=== PATIENT | male | born 1945 | race Caucasian/White ===

== ENCOUNTER → 2018-10-12 | Outpatient (CLI) | payer MEDICARE | END | disposition home or self-care (01) | LOC: RAH 16:30 | PROVIDERS: ATTEND Internal Medicine | DX: M47.812 Spondylosis without myelopathy or radiculopathy, cervical region (principal); M50.31 Other cervical disc degeneration, high cervical region; M47.816 Spondylosis without myelopathy or radiculopathy, lumbar region; M25.78 Osteophyte, vertebrae; M79.642 Pain in left hand; M79.641 Pain in right hand | CPT/HCPCS: 72040; 72100; 73130 ==

== ENCOUNTER → 2021-10-22 | Outpatient (CLI) | payer MEDICARE ==
[2021-10-22 13:42] LABS: INR 1.17 (0.85-1.15); PROTHROMBIN TIME 12.6 SEC (9.6-11.6)
[2021-10-22 13:43] LABS: PARTIAL THROMBOPLASTIN TIME 33.6 SEC (26.3-35.5)
[2021-10-22 13:46] LABS: ALBUMIN 3.5 g/dL (3.5-5.0); CREATININE 1.1 mg/dL (0.5-1.5); TOTAL PROTEIN, SERUM 7.4 g/dL (6.0-8.3)
[2021-10-23 15:55] LABS: BASOPHILS % (AUTO) 0.4 % (0.0-5.0); EOSINOPHILS % (AUTO) 1.2 % (0.0-8.0); LYMPHOCYTES % (AUTO) 14.2 % (21.0-51.0); MEAN CORPUSCULAR HEMOGLOBIN 23.5 pg (27.0-33.0); MEAN CORPUSCULAR VOLUME 83.9 fL (79-99); MONOCYTES % (AUTO) 6.9 % (3.0-13.0); NEUTROPHILS % (AUTO) 76.9 % (40.0-77.0); PLATELET COUNT (AUTO) 185 K/uL (130-400); RED BLOOD CELL COUNT(AUTO) 4.77 MIL/uL (4.50-6.20); RED CELL DISTRIBUTION WIDTH 20.6 % (11.0-15.5); WHITE BLOOD COUNT (AUTO) 7.7 K/uL (4.8-10.8)
== END | disposition home or self-care (01) ==
LOC: RAH 12:41
PROVIDERS: ATTEND Internal Medicine Cardiovascular Disease
DX: R91.8 Other nonspecific abnormal finding of lung field (principal); I50.32 Chronic diastolic (congestive) heart failure; I27.20 Pulmonary hypertension, unspecified; E55.9 Vitamin D deficiency, unspecified; R94.31 Abnormal electrocardiogram [ECG] [EKG]; R09.02 Hypoxemia; Z79.899 Other long term (current) drug therapy
CPT/HCPCS: 36415; 71046; 80053; 80061; 82306; 83735; 83880; 85025; 85610; 85730

== ENCOUNTER 2021-12-03 12:43 | Inpatient (IN) | payer MEDICARE ==
[~2021-12-03] VITALS: Ht 167.6 cm; Wt 128.2 kg
[2021-12-03 13:38] LABS: HEMATOCRIT 37.6 % (42-54); MEAN CORPUSCULAR HEMOGLOBIN 24.2 pg (27.0-33.0); MEAN CORPUSCULAR HGB CONC 30.1 g/dL (32.0-36.0); MEAN CORPUSCULAR VOLUME 80.5 fL (79-99); PLATELET COUNT (AUTO) 162 K/uL (130-400); RED BLOOD CELL COUNT(AUTO) 4.67 MIL/uL (4.50-6.20); RED CELL DISTRIBUTION WIDTH 19.5 % (11.0-15.5); WHITE BLOOD COUNT (AUTO) 7.5 K/uL (4.8-10.8)
[2021-12-03 13:48] LABS: INR 1.21 (0.85-1.15); MAGNESIUM 2.1 mg/dL (1.80-2.40); POTASSIUM 4.2 mmol/L (3.5-5.1)
[2021-12-03 13:49] LABS: PARTIAL THROMBOPLASTIN TIME 33.4 SEC (26.3-35.5)
[2021-12-03] MEDS ORDERED: FUROSEMIDE 40MG VIAL IVP ONE (14:00)
[2021-12-03] MEDS ORDERED: LIDOCAINE HCL-MPF 1% 2ML VIAL IJ PRN (14:00)
[2021-12-03] MEDS ORDERED: POTASSIUM CHLORIDE 20MEQ/100ML 100 ML IV PRN (14:00)
[2021-12-03] MEDS ORDERED: KCL 20 MEQ ERTAB PO PRN (14:00)
[2021-12-03] MEDS ORDERED: POTASSIUM CHLORIDE 10% ELIXIR 20 MEQ/15 ML UDCUP PO PRN (14:00)
[2021-12-03] MEDS ORDERED: DEXTROSE 50%-WATER 50 ML DISP.SYRIN IV PRN (14:00)
[2021-12-03] MEDS ORDERED: PANTOPRAZOLE 40 MG TAB DR PO SCH (14:00)
[2021-12-03] MEDS ORDERED: IPRATROPIUM/ALBUTEROL SULFATE 3 ML SOLUTION IH PRN (14:00)
[2021-12-03 14:03] LABS: B-TYPE NATRIURETIC PEPTIDE 92 pg/mL (0-100)
[2021-12-03 15:16] LABS: ALBUMIN 3.4 g/dL (3.5-5.0); BILIRUBIN,DIRECT 0.3 mg/dL (0.0-0.3); BILIRUBIN,TOTAL 1.1 mg/dL (0.2-1.0); TOTAL PROTEIN, SERUM 7.5 g/dL (6.0-8.3)
[2021-12-03] MEDS: INSULIN R PO SSI SQ SCH ×2 (16:30→21:00)
[2021-12-03] MEDS ORDERED: DILT-36 PO (18:07)
[2021-12-03] MEDS ORDERED: ALLO300T2 PO (18:07)
[2021-12-03] MEDS ORDERED: VITAD50000 PO (18:07)
[2021-12-03] MEDS ORDERED: OMEP20CA12 PO (18:07)
[2021-12-03] MEDS ORDERED: POTA-79 PO (18:07)
[2021-12-03] MEDS ORDERED: APIX5TAB PO (18:07)
[2021-12-03] MEDS ORDERED: FURO40TA5 PO (18:07)
[2021-12-03] MEDS ORDERED: ALBU8.5H8 IH (18:11)
[2021-12-03] MEDS ORDERED: TIOT18CA3 IH (18:11)
[2021-12-03] MEDS ORDERED: HEPARIN 5,000 UNIT VIAL SQ SCH (20:00)
[2021-12-03 21:49] LABS: INR 1.18 (0.85-1.15); PROTHROMBIN TIME 12.7 SEC (9.6-11.6)
[2021-12-03 21:50] LABS: PARTIAL THROMBOPLASTIN TIME 31.6 SEC (26.3-35.5)
[2021-12-03] MEDS: HEPARIN 25,000 UNITS/250ML D5W 250 ML IV SCH (22:03)
[2021-12-03 22:40] VITALS: BP 142/60
[2021-12-03] MEDS ORDERED: HYDR-4060 PO (23:21)
[2021-12-04 04:00] VITALS: BP 155/79
[2021-12-04 04:34] LABS: INR 1.2 (0.85-1.15); PROTHROMBIN TIME 12.9 SEC (9.6-11.6)
[2021-12-04 04:53] LABS: PARTIAL THROMBOPLASTIN TIME 99.5 SEC (26.3-35.5)
[2021-12-04] MEDS: INSULIN R PO SSI SQ SCH ×3 (06:37→21:00)
[2021-12-04 07:17] LABS: BASOPHILS % (AUTO) 0.4 % (0.0-5.0); HEMATOCRIT 36.7 % (42-54); LYMPHOCYTES % (AUTO) 22.2 % (21.0-51.0); MEAN CORPUSCULAR HEMOGLOBIN 23.5 pg (27.0-33.0); MEAN CORPUSCULAR HGB CONC 29.2 g/dL (32.0-36.0); MEAN CORPUSCULAR VOLUME 80.7 fL (79-99); MONOCYTES % (AUTO) 8.7 % (3.0-13.0); NEUTROPHILS % (AUTO) 66.2 % (40.0-77.0); PLATELET COUNT (AUTO) 168 K/uL (130-400); RED BLOOD CELL COUNT(AUTO) 4.55 MIL/uL (4.50-6.20); RED CELL DISTRIBUTION WIDTH 19.6 % (11.0-15.5); WHITE BLOOD COUNT (AUTO) 8.4 K/uL (4.8-10.8)
[2021-12-04 07:29] LABS: ALBUMIN 3.3 g/dL (3.5-5.0); BILIRUBIN,TOTAL 1.1 mg/dL (0.2-1.0); CREATININE 1.1 mg/dL (0.5-1.5); MAGNESIUM 2.1 mg/dL (1.80-2.40); POTASSIUM 3.5 mmol/L (3.5-5.1); TOTAL PROTEIN, SERUM 7.1 g/dL (6.0-8.3)
[2021-12-04 07:49] VITALS: BP 117/52
[2021-12-04] MEDS ORDERED: KCL 20 MEQ ERTAB PO SCH (08:30)
[2021-12-04] MEDS: SPIRIVA IH SCH (09:00)
[2021-12-04] MEDS: PANTOPRAZOLE 40 MG TAB DR PO SCH (10:35)
[2021-12-04] MEDS: ALLOPURINOL 300 MG TABLET PO SCH (10:35)
[2021-12-04] MEDS: DILTIAZEM 120MG SR CAP PO SCH (10:36)
[2021-12-04 10:56] LABS: INR 1.17 (0.85-1.15); PROTHROMBIN TIME 12.6 SEC (9.6-11.6)
[2021-12-04 10:57] LABS: PARTIAL THROMBOPLASTIN TIME 77.7 SEC (26.3-35.5)
[2021-12-04 11:17] VITALS: BP 155/73
[2021-12-04] MEDS: HEPARIN 25,000 UNITS/250ML D5W 250 ML IV SCH (12:22)
[2021-12-04 16:08] VITALS: BP 144/70
[2021-12-04 16:22] LABS: INR 1.15 (0.85-1.15); PROTHROMBIN TIME 12.4 SEC (9.6-11.6)
[2021-12-04 16:23] LABS: PARTIAL THROMBOPLASTIN TIME 79.2 SEC (26.3-35.5)
[2021-12-04 20:00] VITALS: BP 136/71
[2021-12-04 23:28] LABS: INR 1.15 (0.85-1.15); PROTHROMBIN TIME 12.4 SEC (9.6-11.6)
[2021-12-04 23:30] LABS: PARTIAL THROMBOPLASTIN TIME 58.9 SEC (26.3-35.5)
[2021-12-05] VITALS (13 sets, daily range): BP systolic 101–160; BP diastolic 51–96
[2021-12-05 05:20] LABS: HEMATOCRIT 35.1 % (42-54); MEAN CORPUSCULAR HEMOGLOBIN 24.4 pg (27.0-33.0); MEAN CORPUSCULAR HGB CONC 29.9 g/dL (32.0-36.0); MEAN CORPUSCULAR VOLUME 81.4 fL (79-99); RED BLOOD CELL COUNT(AUTO) 4.31 MIL/uL (4.50-6.20); RED CELL DISTRIBUTION WIDTH 19.3 % (11.0-15.5); WHITE BLOOD COUNT (AUTO) 6.8 K/uL (4.8-10.8)
[2021-12-05 05:31] LABS: INR 1.13 (0.85-1.15); PROTHROMBIN TIME 12.2 SEC (9.6-11.6)
[2021-12-05 05:33] LABS: PARTIAL THROMBOPLASTIN TIME 41.3 SEC (26.3-35.5)
[2021-12-05 05:40] LABS: CREATININE 0.9 mg/dL (0.5-1.5); POTASSIUM 3.8 mmol/L (3.5-5.1)
[2021-12-05] MEDS: INSULIN R PO SSI SQ SCH ×2 (07:04→20:37)
[2021-12-05] MEDS ORDERED: SODIUM BICARB 50MEQ 50ML VIAL 50 ML ONE (07:08)
[2021-12-05] MEDS ORDERED: HEPARIN 10,000 UNIT/10ML (1,000 UNIT/ML) VIAL ONE (07:08)
[2021-12-05] MEDS ORDERED: IOHEXOL 350 MG/ML 100ML INFUS..BTL IV ONE (07:08)
[2021-12-05] MEDS ORDERED: IOHEXOL-350 50ML VIAL IV ONE (07:08)
[2021-12-05] MEDS ORDERED: NITROGLYCERIN 50MG VIAL ONE (07:08)
[2021-12-05] MEDS ORDERED: FENTANYL CITRATE PF 50 MCG/1 ML 2ML VIAL ONE ×2 (07:09→08:11)
[2021-12-05] MEDS ORDERED: LIDOCAINE HCL 400MG/20ML VIAL ONE (07:09)
[2021-12-05] MEDS ORDERED: MIDAZOLAM HCL 1 MG/ML 2ML VIAL ONE (07:09)
[2021-12-05] MEDS ORDERED: FUROSEMIDE 20MG VIAL ONE (08:37)
[2021-12-05] MEDS: SPIRIVA IH SCH (09:00)
[2021-12-05] MEDS ORDERED: LABETALOL 20MG VIAL IV ONE (09:01)
[2021-12-05] MEDS: ACETAMINOPHEN 500 MG TABLET PO PRN (09:47)
[2021-12-05] MEDS: PANTOPRAZOLE 40 MG TAB DR PO SCH (09:47)
[2021-12-05] MEDS: DILTIAZEM 120MG SR CAP PO SCH (09:48)
[2021-12-05] MEDS: ALLOPURINOL 300 MG TABLET PO SCH (09:48)
[2021-12-05] MEDS ORDERED: TRAMADOL HCL 50 MG TABLET ONE (10:27)
[2021-12-05] MEDS ORDERED: TRAMADOL HCL 50 MG TABLET PO SCH (10:30)
[2021-12-05] MEDS ORDERED: FENTANYL CITRATE PF 50 MCG/1 ML 2ML VIAL IVP SCH (12:30)
[2021-12-05] MEDS ORDERED: TRAMADOL HCL 50 MG TABLET PO PRN (18:30)
[2021-12-06] VITALS (13 sets, daily range): BP systolic 122–160; BP diastolic 63–86
[2021-12-06 04:14] LABS: HEMATOCRIT 35.2 % (42-54); MEAN CORPUSCULAR HEMOGLOBIN 24.9 pg (27.0-33.0); MEAN CORPUSCULAR HGB CONC 30.4 g/dL (32.0-36.0); MEAN CORPUSCULAR VOLUME 82.1 fL (79-99); RED BLOOD CELL COUNT(AUTO) 4.29 MIL/uL (4.50-6.20); RED CELL DISTRIBUTION WIDTH 19.5 % (11.0-15.5); WHITE BLOOD COUNT (AUTO) 9.2 K/uL (4.8-10.8)
[2021-12-06 04:30] LABS: CREATININE 0.9 mg/dL (0.5-1.5); POTASSIUM 4.1 mmol/L (3.5-5.1)
[2021-12-06] MEDS: INSULIN R PO SSI SQ SCH ×4 (06:31→21:00)
[2021-12-06 06:41] LABS: INR 1.17 (0.85-1.15); PROTHROMBIN TIME 12.6 SEC (9.6-11.6)
[2021-12-06 06:42] LABS: PARTIAL THROMBOPLASTIN TIME 30.2 SEC (26.3-35.5)
[2021-12-06] MEDS: DILTIAZEM 120MG SR CAP PO SCH (09:00)
[2021-12-06] MEDS: PANTOPRAZOLE 40 MG TAB DR PO SCH (09:00)
[2021-12-06] MEDS: ALLOPURINOL 300 MG TABLET PO SCH (09:00)
[2021-12-06] MEDS: SPIRIVA IH SCH (09:00)
[2021-12-06] MEDS ORDERED: CLOPIDOGREL 300MG TAB PO SCH (15:00)
[2021-12-06] MEDS ORDERED: ASPIRIN 325MG TAB PO SCH (15:00)
[2021-12-06] MEDS ORDERED: ASPIRIN 325MG TAB ONE (15:02)
[2021-12-06] MEDS ORDERED: CLOPIDOGREL 300MG TAB ONE (15:06)
[2021-12-06] MEDS ORDERED: SODIUM BICARB 50MEQ 50ML VIAL 50 ML ONE (16:05)
[2021-12-06] MEDS ORDERED: IOHEXOL 350 MG/ML 100ML INFUS..BTL IV ONE (16:06)
[2021-12-06] MEDS ORDERED: LIDOCAINE HCL 400MG/20ML VIAL ONE (16:06)
[2021-12-06] MEDS ORDERED: IOHEXOL-350 50ML VIAL IV ONE (16:06)
[2021-12-06] MEDS ORDERED: FENTANYL CITRATE PF 50 MCG/1 ML 2ML VIAL ONE ×2 (16:06→17:32)
[2021-12-06] MEDS ORDERED: MIDAZOLAM HCL 1 MG/ML 2ML VIAL ONE (16:06)
[2021-12-06] MEDS ORDERED: BIVALIRUDIN 250 MG/VIAL IV ONE ×2 (16:07→16:43)
[2021-12-06] MEDS ORDERED: NITROGLYCERIN 50MG VIAL ONE (16:51)
[2021-12-06] MEDS ORDERED: HEPARIN 10,000 UNIT/10ML (1,000 UNIT/ML) VIAL ONE (17:09)
[2021-12-06] MEDS ORDERED: FUROSEMIDE 20MG VIAL ONE (17:44)
[2021-12-06] MEDS: ACETAMINOPHEN 500 MG TABLET PO PRN (20:14)
[2021-12-07 04:33] LABS: HEMATOCRIT 35.6 % (42-54); MEAN CORPUSCULAR HEMOGLOBIN 24.5 pg (27.0-33.0); MEAN CORPUSCULAR HGB CONC 30.1 g/dL (32.0-36.0); MEAN CORPUSCULAR VOLUME 81.7 fL (79-99); RED BLOOD CELL COUNT(AUTO) 4.36 MIL/uL (4.50-6.20); RED CELL DISTRIBUTION WIDTH 19.3 % (11.0-15.5); WHITE BLOOD COUNT (AUTO) 6.4 K/uL (4.8-10.8)
[2021-12-07 04:37] VITALS: BP 136/69
[2021-12-07 04:48] LABS: CREATININE 0.8 mg/dL (0.5-1.5); POTASSIUM 3.8 mmol/L (3.5-5.1)
[2021-12-07 07:00] VITALS: BP 135/69
[2021-12-07] MEDS: INSULIN R PO SSI SQ SCH ×4 (07:04→21:00)
[2021-12-07] MEDS ORDERED: FUROSEMIDE 40MG VIAL IV ONE ×2 (08:30→15:00)
[2021-12-07] MEDS ORDERED: KCL 20 MEQ ERTAB PO ONE ×2 (08:30→15:00)
[2021-12-07] MEDS: ASPIRIN 81MG CHEW TAB PO SCH (08:39)
[2021-12-07] MEDS: PANTOPRAZOLE 40 MG TAB DR PO SCH (08:40)
[2021-12-07] MEDS: CLOPIDOGREL 75MG TAB PO SCH (08:40)
[2021-12-07] MEDS: ALLOPURINOL 300 MG TABLET PO SCH (08:40)
[2021-12-07] MEDS: DILTIAZEM 120MG SR CAP PO SCH (08:41)
[2021-12-07] MEDS: SPIRIVA IH SCH (09:00)
[2021-12-07 11:00] VITALS: BP 134/73
[2021-12-07 16:09] VITALS: BP 127/74
[2021-12-07 20:00] VITALS: BP 138/74
[2021-12-08 00:17] VITALS: BP 139/74
[2021-12-08 03:42] VITALS: BP 141/67
[2021-12-08 04:16] LABS: CREATININE 0.9 mg/dL (0.5-1.5); POTASSIUM 3.7 mmol/L (3.5-5.1)
[2021-12-08] MEDS: INSULIN R PO SSI SQ SCH (05:58)
[2021-12-08 07:15] VITALS: BP 141/73
[2021-12-08] MEDS: SPIRIVA IH SCH (09:00)
[2021-12-08] MEDS: DILTIAZEM 120MG SR CAP PO SCH (09:32)
[2021-12-08] MEDS: CLOPIDOGREL 75MG TAB PO SCH (09:32)
[2021-12-08] MEDS: ALLOPURINOL 300 MG TABLET PO SCH (09:33)
[2021-12-08] MEDS: ASPIRIN 81MG CHEW TAB PO SCH (09:33)
[2021-12-08] MEDS: PANTOPRAZOLE 40 MG TAB DR PO SCH (09:33)
[2021-12-08 11:30] VITALS: BP 145/76
[2021-12-08] MEDS ORDERED: TORS20TA4 PO (11:40)
[2021-12-08] MEDS ORDERED: CLOP75TA14 PO (11:40)
[2021-12-08] MEDS ORDERED: AEC81 PO (11:40)
[2021-12-08] MEDS ORDERED: APIXABAN 5 MG TABLET PO SCH (21:00)
== END 2021-12-08 14:45 | disposition home or self-care (01) | DRG 246 ==
LOC: EDH 12:43 → EDHIP 12:44 → 4CH 21:47
PROVIDERS: ADMIT Internal Medicine; ATTEND Internal Medicine
PROC: 5A09357 Assistance with Respiratory Ventilation, Less than 24 Consecutive Hours, Continuous Positive Airway Pressure (ICD-10-PCS; 2021-12-04)
PROC: B2111ZZ Fluoroscopy of Multiple Coronary Arteries using Low Osmolar Contrast (ICD-10-PCS; 2021-12-05)
PROC: B2151ZZ Fluoroscopy of Left Heart using Low Osmolar Contrast (ICD-10-PCS; 2021-12-05)
PROC: 5A09357 Assistance with Respiratory Ventilation, Less than 24 Consecutive Hours, Continuous Positive Airway Pressure (ICD-10-PCS; 2021-12-05)
PROC: 027034Z Dilation of Coronary Artery, One Artery with Drug-eluting Intraluminal Device, Percutaneous Approach (ICD-10-PCS; principal; 2021-12-06)
PROC: 4A023N8 Measurement of Cardiac Sampling and Pressure, Bilateral, Percutaneous Approach (ICD-10-PCS; 2021-12-06)
PROC: B2111ZZ Fluoroscopy of Multiple Coronary Arteries using Low Osmolar Contrast (ICD-10-PCS; 2021-12-06)
PROC: 4A023N7 Measurement of Cardiac Sampling and Pressure, Left Heart, Percutaneous Approach (ICD-10-PCS; 2021-12-06)
PROC: 5A09357 Assistance with Respiratory Ventilation, Less than 24 Consecutive Hours, Continuous Positive Airway Pressure (ICD-10-PCS; 2021-12-06)
PROC: 5A09357 Assistance with Respiratory Ventilation, Less than 24 Consecutive Hours, Continuous Positive Airway Pressure (ICD-10-PCS; 2021-12-07)
DX: I25.10 Atherosclerotic heart disease of native coronary artery without angina pectoris (principal); J96.01 Acute respiratory failure with hypoxia; I50.33 Acute on chronic diastolic (congestive) heart failure; Q21.1 Atrial septal defect; Z68.42 Body mass index [BMI] 45.0-49.9, adult; I11.0 Hypertensive heart disease with heart failure; I27.20 Pulmonary hypertension, unspecified; I48.91 Unspecified atrial fibrillation; M1A.9XX0 Chronic gout, unspecified, without tophus (tophi); G47.33 Obstructive sleep apnea (adult) (pediatric); E66.9 Obesity, unspecified; E78.5 Hyperlipidemia, unspecified; Z20.822 Contact with and (suspected) exposure to COVID-19; J43.9 Emphysema, unspecified; N40.0 Benign prostatic hyperplasia without lower urinary tract symptoms; Z96.641 Presence of right artificial hip joint; Z96.653 Presence of artificial knee joint, bilateral; I25.2 Old myocardial infarction; Z79.01 Long term (current) use of anticoagulants; Z88.8 Allergy status to other drugs, medicaments and biological substances; Z87.891 Personal history of nicotine dependence; Z95.0 Presence of cardiac pacemaker; Z95.5 Presence of coronary angioplasty implant and graft; Z86.73 Personal history of transient ischemic attack (TIA), and cerebral infarction without residual deficits
CPT/HCPCS: 36415; 71045; 80048; 80053; 80061; 80076; 82550; 82948; 83735; 83874; 83880; 84145; 84484; 85025; 85027; 85378; 85610; 85651; 85730; 86140; 87635; 87804; 93005; 93306; 93356; 93452; 93460; 93970; 99156; 99157; A4344; C1760; C1769; C1887; C1894; C9600; G0378; J0583; J1644; J1940; J2250; J3010; J3490; Q9967

== ENCOUNTER 2021-12-21 05:57 | Day surgery (SDC) | payer MEDICARE ==
[2021-12-19 09:03] LABS: BASOPHILS % (AUTO) 0.5 % (0.0-5.0); EOSINOPHILS % (AUTO) 2.8 % (0.0-8.0); HEMATOCRIT 42.1 % (42-54); LYMPHOCYTES % (AUTO) 22.8 % (21.0-51.0); MEAN CORPUSCULAR HEMOGLOBIN 24.3 pg (27.0-33.0); MEAN CORPUSCULAR HGB CONC 29.7 g/dL (32.0-36.0); MEAN CORPUSCULAR VOLUME 81.7 fL (79-99); MONOCYTES % (AUTO) 8.5 % (3.0-13.0); NEUTROPHILS % (AUTO) 64.9 % (40.0-77.0); PLATELET COUNT (AUTO) 217 K/uL (130-400); RED BLOOD CELL COUNT(AUTO) 5.15 MIL/uL (4.50-6.20); RED CELL DISTRIBUTION WIDTH 18.7 % (11.0-15.5); WHITE BLOOD COUNT (AUTO) 6.4 K/uL (4.8-10.8)
[2021-12-19 09:17] LABS: POTASSIUM 3.9 mmol/L (3.5-5.1)
[2021-12-19 09:19] LABS: INR 1.16 (0.85-1.15); PROTHROMBIN TIME 12.5 SEC (9.6-11.6)
[2021-12-19 09:20] LABS: PARTIAL THROMBOPLASTIN TIME 34.2 SEC (26.3-35.5)
[2021-12-19 09:45] LABS: B-TYPE NATRIURETIC PEPTIDE 88 pg/mL (0-100)
[2021-12-19 10:09] LABS: APPEARANCE,URINE Clear (CLEAR); BILIRUBIN,URINE Negative (NEGATIVE); COLOR,URINE Yellow (YELLOW); GLUCOSE, URINE (UA) Negative (NEGATIVE); KETONES,URINE Trace mg/dL (NEGATIVE); LEUKOCYTE ESTERASE ,URINE Negative (NEGATIVE); NITRATE,URINE Negative (NEGATIVE); OCCULT BLOOD,URINE Negative (NEGATIVE); PROTEIN,URINE POS 1+ mg/dL (NEGATIVE)
[2021-12-19 10:35] LABS: BACTERIA,URINE Rare /HPF (None Seen); RBC,URINE 0-1 /HPF (0-1); SQUAMOUS EPITHELIAL CELL,UR Rare /HPF (0-2); WBC,URINE 0-1 /HPF (0-1)
[2021-12-20 10:24] VITALS: BP 157/65
[~2021-12-21] VITALS: Ht 167.6 cm; Wt 119.4 kg
[2021-12-21] VITALS (10 sets, daily range): BP systolic 132–159; BP diastolic 63–89
[~2021-12-21 05:57] MED LIST: AEC81 PO; ALLO300T2 PO; APIX5TAB PO; CHOL500051 PO; CLOP75TA14 PO; OMEP20CA12 PO; POTA-79 PO; TIOT4MIS5 IH; TORS20TA4 PO
[2021-12-21] MEDS ORDERED: 0.9%NACL 1000ML 1,000 ML IV ONE (06:26)
[2021-12-21] MEDS ORDERED: LIDOCAINE HCL 1% 20 ML VIAL ONE (07:13)
[2021-12-21] MEDS ORDERED: SODIUM BICARB 50MEQ 50ML VIAL 50 ML ONE (07:13)
[2021-12-21] MEDS ORDERED: MIDAZOLAM HCL 1 MG/ML 2ML VIAL ONE (07:13)
[2021-12-21] MEDS ORDERED: FENTANYL CITRATE PF 50 MCG/1 ML 2ML VIAL ONE ×3 (07:14→08:57)
[2021-12-21] MEDS ORDERED: IOHEXOL-350 50ML VIAL IV ONE (07:36)
[2021-12-21] MEDS ORDERED: FENTANYL CITRATE PF 50 MCG/1 ML 2ML VIAL IVP SCH (12:00)
== END 2021-12-21 12:35 | disposition home or self-care (01) ==
LOC: DAH 05:57
PROVIDERS: ATTEND Internal Medicine Cardiovascular Disease
DX: I50.43 Acute on chronic combined systolic (congestive) and diastolic (congestive) heart failure (principal); I27.20 Pulmonary hypertension, unspecified; I25.10 Atherosclerotic heart disease of native coronary artery without angina pectoris; I11.0 Hypertensive heart disease with heart failure; I48.0 Paroxysmal atrial fibrillation; D68.59 Other primary thrombophilia; G89.29 Other chronic pain; M54.9 Dorsalgia, unspecified; G47.33 Obstructive sleep apnea (adult) (pediatric); I25.2 Old myocardial infarction; E78.5 Hyperlipidemia, unspecified; J44.9 Chronic obstructive pulmonary disease, unspecified; M19.90 Unspecified osteoarthritis, unspecified site; M10.9 Gout, unspecified; E66.9 Obesity, unspecified; Z90.89 Acquired absence of other organs; Z98.890 Other specified postprocedural states; Z82.49 Family history of ischemic heart disease and other diseases of the circulatory system; Z82.3 Family history of stroke; Z80.8 Family history of malignant neoplasm of other organs or systems; Z80.1 Family history of malignant neoplasm of trachea, bronchus and lung; Z87.891 Personal history of nicotine dependence; Z86.73 Personal history of transient ischemic attack (TIA), and cerebral infarction without residual deficits; Z68.42 Body mass index [BMI] 45.0-49.9, adult; Z79.01 Long term (current) use of anticoagulants
CPT/HCPCS: 33289; 36415; 71045; 80048; 81001; 83880; 85025; 85610; 85730; 93005; A4215; A4216; A4221; A4222; A4223 ×3; A4606; A4663; C1760; C1769 ×3; C1894 ×2; C2624; J1644 ×3; J2250; J3010 ×4; J3490; J7030; Q9967; 93451; 99156; 99157

== ENCOUNTER → 2021-12-25 | Outpatient (CLI) | payer MEDICARE ==
[2021-12-25 10:10] LABS: CREATININE 1.1 mg/dL (0.5-1.5); POTASSIUM 3.8 mmol/L (3.5-5.1)
== END | disposition home or self-care (01) ==
LOC: LAB 08:26
PROVIDERS: ATTEND Internal Medicine Cardiovascular Disease
DX: I50.33 Acute on chronic diastolic (congestive) heart failure (principal)
CPT/HCPCS: 36415; 80048

== ENCOUNTER → 2022-01-02 | Outpatient (CLI) | payer MEDICARE ==
[2022-01-02 09:26] LABS: CREATININE 0.9 mg/dL (0.5-1.5); POTASSIUM 4.3 mmol/L (3.5-5.1)
== END | disposition home or self-care (01) ==
LOC: LAB 12-27 15:40
PROVIDERS: ATTEND Internal Medicine Cardiovascular Disease
DX: I50.32 Chronic diastolic (congestive) heart failure (principal); I27.20 Pulmonary hypertension, unspecified; I48.0 Paroxysmal atrial fibrillation; D68.59 Other primary thrombophilia
CPT/HCPCS: 36415; 80048; 83735; 83880

== ENCOUNTER → 2022-01-07 | Outpatient (CLI) | payer MEDICARE ==
[2022-01-07 12:37] LABS: CREATININE 1.6 mg/dL (0.5-1.5); MAGNESIUM 2.1 mg/dL (1.80-2.40)
== END | disposition home or self-care (01) ==
LOC: LAB 13:27
PROVIDERS: ATTEND Internal Medicine Cardiovascular Disease
DX: I27.20 Pulmonary hypertension, unspecified (principal); I50.33 Acute on chronic diastolic (congestive) heart failure
CPT/HCPCS: 36415; 80048; 83735; 83880

== ENCOUNTER → 2022-01-14 | Outpatient (CLI) | payer MEDICARE ==
[2022-01-14 12:52] LABS: CREATININE 1.3 mg/dL (0.5-1.5); MAGNESIUM 2.1 mg/dL (1.80-2.40)
== END | disposition home or self-care (01) ==
LOC: LAB 13:32
PROVIDERS: ATTEND Internal Medicine Cardiovascular Disease
DX: D68.59 Other primary thrombophilia (principal); I48.92 Unspecified atrial flutter; I27.20 Pulmonary hypertension, unspecified; I50.32 Chronic diastolic (congestive) heart failure
CPT/HCPCS: 36415; 80048; 83735

== ENCOUNTER → 2022-10-31 | Outpatient (CLI) | payer MEDICARE ==
[~2022-10-31] MED LIST changes: +CLOP-31 PO; -CLOP75TA14 PO
[2022-10-31 12:53] LABS: BASOPHILS % (AUTO) 0.7 % (0.0-5.0); EOSINOPHILS % (AUTO) 1.6 % (0.0-8.0); HEMATOCRIT 43.4 % (42-54); LYMPHOCYTES % (AUTO) 18.3 % (21.0-51.0); MEAN CORPUSCULAR HEMOGLOBIN 29.8 pg (27.0-33.0); MEAN CORPUSCULAR VOLUME 92.9 fL (79-99); MONOCYTES % (AUTO) 8.5 % (3.0-13.0); NEUTROPHILS % (AUTO) 70.1 % (40.0-77.0); PLATELET COUNT (AUTO) 186 K/uL (130-400); RED BLOOD CELL COUNT(AUTO) 4.67 MIL/uL (4.50-6.20); WHITE BLOOD COUNT (AUTO) 7.4 K/uL (4.8-10.8)
[2022-10-31 13:02] LABS: CREATININE 1.3 mg/dL (0.5-1.5); MAGNESIUM 2.1 mg/dL (1.80-2.40)
== END | disposition home or self-care (01) ==
LOC: LAB 09:13
PROVIDERS: ATTEND Internal Medicine Cardiovascular Disease
DX: I48.0 Paroxysmal atrial fibrillation (principal); I27.20 Pulmonary hypertension, unspecified
CPT/HCPCS: 36415; 80048; 83735; 83880; 85025

== ENCOUNTER 2022-11-07 09:43 | Emergency (ER) | payer MEDICARE ==
[~2022-11-07] VITALS: Ht 170.2 cm; Wt 111.1 kg
[2022-11-07 09:51] VITALS: BP 144/80
[2022-11-07] MEDS ORDERED: L.E.T. GEL 3ML SYG TP ONE (11:12)
[2022-11-07] MEDS ORDERED: LIDOCAINE HCL 1% 20 ML VIAL ONE (11:14)
[2022-11-07] MEDS ORDERED: TETANUS/DIPHTHERIA TOXOID [ADULT] 0.5 ML VIAL IM ONE ×2 (11:58→12:00)
[2022-11-21] MEDS ORDERED: CLOP75TA32 PO (12:57)
[2022-11-21] MEDS ORDERED: TORS100T16 PO (13:12)
[2022-11-21] MEDS ORDERED: METO5TAB7 PO (13:12)
[2022-11-21] MEDS ORDERED: SPIR25TA6 PO (13:12)
[2022-11-21] MEDS ORDERED: ACET-2123 PO (13:12)
[2022-11-21] MEDS ORDERED: DOCU60SY6 PO (13:12)
== END 2022-11-07 12:08 | disposition home or self-care (01) ==
LOC: EDH 09:43
DX: S61.012A Laceration without foreign body of left thumb without damage to nail, initial encounter (principal); I11.0 Hypertensive heart disease with heart failure; I50.9 Heart failure, unspecified; J44.9 Chronic obstructive pulmonary disease, unspecified; I48.91 Unspecified atrial fibrillation; Z88.8 Allergy status to other drugs, medicaments and biological substances; Z79.82 Long term (current) use of aspirin; Z79.01 Long term (current) use of anticoagulants; Z95.810 Presence of automatic (implantable) cardiac defibrillator; W45.8XXA Other foreign body or object entering through skin, initial encounter; Y93.89 Activity, other specified; Y92.89 Other specified places as the place of occurrence of the external cause; Y99.8 Other external cause status
CPT/HCPCS: 12001; 12002; 36415; 80048; 83735; 90471; 90714

== ENCOUNTER → 2022-11-07 | Outpatient (CLI) | payer MEDICARE ==
[2022-11-07 16:34] LABS: CREATININE 1.6 mg/dL (0.5-1.5); POTASSIUM 4.4 mmol/L (3.5-5.1)
== END | disposition home or self-care (01) ==
LOC: LAB 13:14
PROVIDERS: ATTEND Internal Medicine Cardiovascular Disease
DX: I50.32 Chronic diastolic (congestive) heart failure (principal); R53.83 Other fatigue
CPT/HCPCS: 36415; 80048; 83735

== ENCOUNTER → 2022-12-06 | Outpatient (CLI) | payer MEDICARE ==
[~2022-12-06] MED LIST changes: +ACET-2123 PO; -AEC81 PO; -CLOP-31 PO; +CLOP75TA32 PO; +DOCU60SY6 PO; +METO5TAB7 PO; +SPIR25TA6 PO; +TORS100T16 PO; -TORS20TA4 PO
[2022-12-06 15:44] LABS: CREATININE 1.3 mg/dL (0.5-1.5); MAGNESIUM 1.8 mg/dL (1.80-2.40); POTASSIUM 4.8 mmol/L (3.5-5.1)
== END | disposition home or self-care (01) ==
LOC: LAB 08:19
PROVIDERS: ATTEND Internal Medicine Cardiovascular Disease
DX: I50.32 Chronic diastolic (congestive) heart failure (principal); R53.83 Other fatigue
CPT/HCPCS: 36415; 80048; 83735

== ENCOUNTER → 2022-12-10 | Outpatient (CLI) | payer MEDICARE | END | disposition home or self-care (01) | LOC: RAH 14:14 | PROVIDERS: ATTEND Internal Medicine Critical Care Medicine | DX: R91.1 Solitary pulmonary nodule (principal); I25.10 Atherosclerotic heart disease of native coronary artery without angina pectoris; Z95.0 Presence of cardiac pacemaker | CPT/HCPCS: 71250 ==

== ENCOUNTER → 2022-12-20 | Outpatient (CLI) | payer MEDICARE ==
[2022-12-20 14:27] LABS: CREATININE 1.7 mg/dL (0.5-1.5); POTASSIUM 3.4 mmol/L (3.5-5.1)
== END | disposition home or self-care (01) ==
LOC: LAB 08:41
PROVIDERS: ATTEND Internal Medicine Cardiovascular Disease
DX: I50.32 Chronic diastolic (congestive) heart failure (principal)
CPT/HCPCS: 36415; 80048

== ENCOUNTER → 2023-01-01 | Outpatient (CLI) | payer MEDICARE ==
[2023-01-01 13:04] LABS: CREATININE 1.3 mg/dL (0.5-1.5); MAGNESIUM 2.2 mg/dL (1.80-2.40); POTASSIUM 4.8 mmol/L (3.5-5.1)
== END | disposition home or self-care (01) ==
LOC: LAB 08:32
PROVIDERS: ATTEND Internal Medicine Cardiovascular Disease
DX: I50.32 Chronic diastolic (congestive) heart failure (principal)
CPT/HCPCS: 36415; 80048; 83735

== ENCOUNTER → 2023-11-11 | Outpatient (CLI) | payer MEDICARE ==
[~2023-11-11] MED LIST changes: +POTA-364 PO; -POTA-79 PO
[2023-11-11 12:28] LABS: BASOPHILS # (AUTO) 0.02 K/uL (0.00-0.20); BASOPHILS % (AUTO) 0.3 % (0.0-5.0); EOSINOPHILS # (AUTO) 0.16 K/uL (0.00-0.70); EOSINOPHILS % (AUTO) 2.1 % (0.0-8.0); HEMATOCRIT 49.3 % (42-54); IMMATURE GRANULOCYTE ABSOLUTE 0.06 K/uL (0-1); LYMPHOCYTES # (AUTO) 1.6 K/uL (1.0-4.8); MEAN CORPUSCULAR HEMOGLOBIN 29.3 pg (27.0-33.0); MEAN CORPUSCULAR HGB CONC 31.2 g/dL (32.0-36.0); MEAN CORPUSCULAR VOLUME 93.7 fL (79-99); MONOCYTES # (AUTO) 0.6 K/uL (0.1-1.0); NEUTROPHILS % (AUTO) 66.8 % (40.0-77.0); PLATELET COUNT (AUTO) 179 K/uL (130-400); RED BLOOD CELL COUNT(AUTO) 5.26 MIL/uL (4.50-6.20); WHITE BLOOD COUNT (AUTO) 7.5 K/uL (4.8-10.8)
[2023-11-11 13:41] LABS: CREATININE 1.4 mg/dL (0.5-1.5); POTASSIUM 4.4 mmol/L (3.5-5.1)
== END | disposition home or self-care (01) ==
LOC: LAB 08:37
PROVIDERS: ATTEND Internal Medicine Cardiovascular Disease
DX: I48.0 Paroxysmal atrial fibrillation (principal)
CPT/HCPCS: 36415; 80048; 85025

== ENCOUNTER → 2023-12-15 | Outpatient (CLI) | payer MEDICARE ==
[~2023-12-15] MED LIST changes: -POTA-364 PO; +POTA-79 PO
[2023-12-15 16:40] LABS: CREATININE 1.7 mg/dL (0.5-1.3); POTASSIUM 4.4 mmol/L (3.5-5.1)
== END | disposition home or self-care (01) ==
LOC: LAB 13:37
PROVIDERS: ATTEND Internal Medicine Cardiovascular Disease
DX: I50.32 Chronic diastolic (congestive) heart failure (principal); I27.20 Pulmonary hypertension, unspecified
CPT/HCPCS: 36415; 80048